=== PATIENT | male | born 1970 | race African-American/Black ===

== ENCOUNTER 2017-05-29 18:00 | Emergency (ER) | payer OTHER ==
[~2017-05-29] VITALS: Ht 180.3 cm; Wt 108.0 kg
[2017-05-29 18:52] LABS: BLOOD UREA NITROGEN 8 mg/dL (7-18)
[2017-05-29 21:37] VITALS: BP 134/76
== END 2017-05-29 21:39 | disposition home or self-care (01) ==
LOC: ED 20:50
DX: G47.00 Insomnia, unspecified (principal); R53.83 Other fatigue; F17.200 Nicotine dependence, unspecified, uncomplicated
CPT/HCPCS: 36415; 80048; 82040; 84439; 84443; 85025; 93005; 99285

== ENCOUNTER 2017-07-08 18:58 | Emergency (ER) | payer BC, OTHER ==
[~2017-07-08] VITALS: Ht 180.3 cm; Wt 102.5 kg
[2017-07-08 18:59] VITALS: BP 122/89
== END 2017-07-08 20:08 | disposition home or self-care (01) ==
LOC: ED 19:40
DX: E11.9 Type 2 diabetes mellitus without complications (principal)
CPT/HCPCS: 82962; 99281; 99282

== ENCOUNTER 2017-08-13 17:29 | Emergency (ER) | payer BC ==
[~2017-08-13] VITALS: Ht 180.3 cm; Wt 101.3 kg
[2017-08-13] MEDS ORDERED: SODIUM CHLORIDE 0.9% 1,000 ML IV ONE (17:54)
[2017-08-13] MEDS ORDERED: FAMOTIDINE 20 MG/2 ML IVP ONE (18:00)
[2017-08-13] MEDS ORDERED: ONDANSETRON 2MG/ML, 2ML IVPush ONE (18:00)
[2017-08-13] MEDS ORDERED: SODIUM CHLORIDE 0.9% 1,000ML IVBOLUS ONE (18:00)
[2017-08-13 18:10] LABS: HEMATOCRIT 48.2 % (39.2-51.8); HEMOGLOBIN 16.2 g/dL (13.7-18.0); WHITE BLOOD COUNT 10.2 x10^3/uL (3.4-10)
[2017-08-13 18:20] LABS: BLOOD UREA NITROGEN 18 mg/dL (7-18)
[2017-08-13 18:23] LABS: ASPARTATE AMINO TRANSFERASE 17 U/L (15-37)
[2017-08-13 19:37] VITALS: BP 120/76
== END 2017-08-13 19:40 | disposition home or self-care (01) ==
LOC: ED 18:18
DX: R10.33 Periumbilical pain (principal); R11.0 Nausea; E11.9 Type 2 diabetes mellitus without complications
CPT/HCPCS: 36415; 74020; 80053; 83690; 85025; 96361; 96374; 96375; 99285; J2405; J7030; S0028

== ENCOUNTER 2017-12-22 20:26 | Emergency (ER) | payer BC ==
[~2017-12-22] VITALS: Ht 180.3 cm; Wt 90.0 kg
[2017-12-22 20:28] VITALS: BP 145/87
[2017-12-22] MEDS ORDERED: KETOROLAC 30 MG/1 ML ONE (21:27)
[2017-12-22] MEDS ORDERED: KETOROLAC 60 MG/2 ML IM ONE (21:30)
[2017-12-22] MEDS ORDERED: L.E.T SOLUTION TP ONE (21:30)
== END 2017-12-22 22:43 | disposition home or self-care (01) ==
LOC: ED 21:45
DX: M25.511 Pain in right shoulder (principal); E11.9 Type 2 diabetes mellitus without complications
CPT/HCPCS: 73030; 96372; 99284; J1885

== ENCOUNTER 2017-12-26 16:50 | Emergency (ER) | payer BC ==
[~2017-12-26] VITALS: Ht 180.3 cm; Wt 86.5 kg
[2017-12-26 17:28] LABS: BASOPHILS # (AUTO) 0.05 x10^3/uL (0-0.1); BASOPHILS % (AUTO) 1 % (0-1); EOSINOPHILS % (AUTO) 1 % (1-7); LYMPHOCYTES # (AUTO) 1.87 x10^3/uL (1-3.4); LYMPHOCYTES % (AUTO) 18 % (22-44); MD NO; MEAN CORPUSCULAR HEMOGLOBIN 30.5 pg (27.5-34.5); MEAN CORPUSCULAR HGB CONC 33.3 g/dL (33.2-36.2); MEAN CORPUSCULAR VOLUME 91.8 fL (81-97); MEAN PLATELET VOLUME 8.8 fL (7.4-10.4); MONOCYTES # (AUTO) 0.99 x10^3/uL (0.2-0.8); MONOCYTES % (AUTO) 10 % (2-9); NEUTROPHILS # (AUTO) 7.15 x10^3/uL (1.8-6.8); NEUTROPHILS % (AUTO) 70 % (42-75); PLATELET COUNT 314 x10^3/uL (130-400); RED BLOOD COUNT 5.11 x10^6/uL (4.38-5.82); RED CELL DISTRIBUTION WIDTH 13.8 % (9.4-14.8)
[2017-12-26 17:40] LABS: ALANINE AMINOTRANSFERASE 17 U/L (12-78); ALBUMIN 3.1 g/dL (3.4-5.0); ANION GAP 7 mmol/L (5-15); CALCIUM 8.4 mg/dL (8.5-10.1); CHLORIDE 107 mmol/L (98-107); CREATININE 0.74 mg/dL (0.7-1.3)
[2017-12-26 18:03] LABS: ALKALINE PHOSPHATASE 110 U/L (45-117); BILIRUBIN,TOTAL 0.7 mg/dL (0.2-1.0); TOTAL PROTEIN 7.7 g/dL (6.4-8.2)
[2017-12-26] MEDS ORDERED: KETOROLAC 30 MG/1 ML IM ONE (20:30)
[2017-12-26] MEDS ORDERED: KETOROLAC 30 MG/1 ML ONE (21:17)
[2017-12-26 21:29] VITALS: BP 102/69
== END 2017-12-26 21:32 | disposition home or self-care (01) ==
LOC: ED 21:25
DX: M25.512 Pain in left shoulder (principal); M25.511 Pain in right shoulder; M25.522 Pain in left elbow; M25.521 Pain in right elbow; M25.531 Pain in right wrist; M25.562 Pain in left knee; M25.561 Pain in right knee; M25.572 Pain in left ankle and joints of left foot; M25.571 Pain in right ankle and joints of right foot; E11.9 Type 2 diabetes mellitus without complications; Z98.84 Bariatric surgery status
CPT/HCPCS: 36415; 80053; 83690; 84550; 85025; 96372; 99284; J1885

== ENCOUNTER 2018-01-23 18:13 | Emergency (ER) | payer BC ==
[~2018-01-23] VITALS: Ht 180.3 cm; Wt 88.0 kg
[2018-01-23] MEDS ORDERED: NAPR-685 PO (18:36)
[2018-01-23] MEDS ORDERED: SODIUM CHLORIDE 0.9% 1,000 ML IV ONE (18:49)
[2018-01-23] MEDS ORDERED: SODIUM CHLORIDE FLUSH 10ML SYR IVF ONE (19:00)
[2018-01-23] MEDS ORDERED: SODIUM CHLORIDE 0.9% 1,000ML IVBOLUS ONE (19:00)
[2018-01-23 19:13] LABS: BASOPHILS # (AUTO) 0.02 x10^3/uL (0-0.1); BASOPHILS % (AUTO) 0 % (0-1); EOSINOPHILS # (AUTO) 0.03 x10^3/uL (0-0.4); EOSINOPHILS % (AUTO) 0 % (1-7); LYMPHOCYTES # (AUTO) 1.26 x10^3/uL (1-3.4); LYMPHOCYTES % (AUTO) 11 % (22-44); MD NO; MEAN CORPUSCULAR HEMOGLOBIN 30.4 pg (27.5-34.5); MEAN CORPUSCULAR HGB CONC 33.2 g/dL (33.2-36.2); MEAN CORPUSCULAR VOLUME 91.7 fL (81-97); MEAN PLATELET VOLUME 9.2 fL (7.4-10.4); MONOCYTES # (AUTO) 0.63 x10^3/uL (0.2-0.8); MONOCYTES % (AUTO) 6 % (2-9); NEUTROPHILS # (AUTO) 9.08 x10^3/uL (1.8-6.8); NEUTROPHILS % (AUTO) 82 % (42-75); PLATELET COUNT 210 x10^3/uL (130-400); RED BLOOD COUNT 4.39 x10^6/uL (4.38-5.82); RED CELL DISTRIBUTION WIDTH 15.4 % (9.4-14.8)
[2018-01-23 19:22] LABS: ALBUMIN 3.1 g/dL (3.4-5.0); ANION GAP 4 mmol/L (5-15); CALCIUM 7.8 mg/dL (8.5-10.1); CHLORIDE 115 mmol/L (98-107); CREATININE 0.88 mg/dL (0.7-1.3)
[2018-01-23 20:10] VITALS: BP 138/72
== END 2018-01-23 20:16 | disposition home or self-care (01) ==
LOC: ED 19:25
DX: R55 Syncope and collapse (principal); E11.9 Type 2 diabetes mellitus without complications; F17.210 Nicotine dependence, cigarettes, uncomplicated
CPT/HCPCS: 36415; 80048; 82040; 85025; 93005; 99285; J7030

== ENCOUNTER 2018-02-01 11:31 | Emergency (ER) | payer BC ==
[~2018-02-01] VITALS: Ht 180.3 cm; Wt 96.3 kg
[~2018-02-01 11:31] MED LIST: NAPR-685 PO
[2018-02-01] MEDS ORDERED: SODIUM CHLORIDE FLUSH 10ML SYR IVF ONE (13:00)
[2018-02-01] MEDS ORDERED: IBUPROFEN 200 MG TABLET ONE (13:07)
[2018-02-01 13:18] LABS: BASOPHILS # (AUTO) 0.02 x10^3/uL (0-0.1); BASOPHILS % (AUTO) 0 % (0-1); EOSINOPHILS # (AUTO) 0.01 x10^3/uL (0-0.4); EOSINOPHILS % (AUTO) 0 % (1-7); LYMPHOCYTES # (AUTO) 0.52 x10^3/uL (1-3.4); LYMPHOCYTES % (AUTO) 6 % (22-44); MD NO; MEAN CORPUSCULAR HEMOGLOBIN 29.8 pg (27.5-34.5); MEAN CORPUSCULAR VOLUME 90.3 fL (81-97); MEAN PLATELET VOLUME 9.2 fL (7.4-10.4); MONOCYTES # (AUTO) 0.45 x10^3/uL (0.2-0.8); MONOCYTES % (AUTO) 5 % (2-9); NEUTROPHILS # (AUTO) 7.76 x10^3/uL (1.8-6.8); NEUTROPHILS % (AUTO) 89 % (42-75); PLATELET COUNT 174 x10^3/uL (130-400); RED BLOOD COUNT 4.79 x10^6/uL (4.38-5.82); RED CELL DISTRIBUTION WIDTH 15.8 % (9.4-14.8)
[2018-02-01 13:20] LABS: MICROSCOPIC AUTO
[2018-02-01 13:29] LABS: ALANINE AMINOTRANSFERASE 26 U/L (12-78); ALBUMIN 3.7 g/dL (3.4-5.0); ANION GAP 9 mmol/L (5-15); CALCIUM 8.3 mg/dL (8.5-10.1); CHLORIDE 104 mmol/L (98-107); CREATININE 0.97 mg/dL (0.7-1.3)
[2018-02-01] MEDS ORDERED: IBUPROFEN 200 MG TABLET PO ONE (13:30)
[2018-02-01 13:32] LABS: ALKALINE PHOSPHATASE 116 U/L (45-117); BILIRUBIN,TOTAL 0.6 mg/dL (0.2-1.0); TOTAL PROTEIN 7.3 g/dL (6.4-8.2)
[2018-02-01 14:04] LABS: CULTURE INDICATED? NO
[2018-02-01 14:32] VITALS: BP 132/92
== END 2018-02-01 14:35 | disposition home or self-care (01) ==
LOC: ED 13:46
DX: B34.9 Viral infection, unspecified (principal); E11.9 Type 2 diabetes mellitus without complications; Z98.84 Bariatric surgery status
CPT/HCPCS: 36415; 71045; 80053; 81001; 83605; 84145; 85025; 99285

== ENCOUNTER 2020-08-22 14:17 | Emergency (ER) | payer BC, MEDICAID ==
[~2020-08-22] VITALS: Ht 180.3 cm; Wt 114.0 kg
[2020-08-22] MEDS ORDERED: DIPHENHYDRAMINE 50 MG/ML, 1ML ONE (14:58)
[2020-08-22] MEDS ORDERED: MORPHINE SULFATE 4 MG/ML, 1ML ONE (14:59)
[2020-08-22] MEDS ORDERED: MORPHINE SULFATE 4 MG/ML, 1ML IVPush ONE (15:00)
[2020-08-22] MEDS ORDERED: DIPHENHYDRAMINE 50 MG/ML, 1ML IV ONE (15:00)
[2020-08-22 15:07] LABS: BASOPHILS % (AUTO) 0 % (0-1); EOSINOPHILS % (AUTO) 0 % (1-7); LYMPHOCYTES % (AUTO) 9 % (22-44); MEAN CORPUSCULAR HEMOGLOBIN 29.8 pg (27.5-34.5); MEAN CORPUSCULAR HGB CONC 32.9 g/dL (33.2-36.2); MEAN PLATELET VOLUME 9.1 fL (7.4-10.4); MONOCYTES % (AUTO) 8 % (2-9); NEUTROPHILS % (AUTO) 83 % (42-75); PLATELET COUNT 212 x10^3/uL (130-400); RED BLOOD COUNT 5.02 x10^6/uL (4.38-5.82); RED CELL DISTRIBUTION WIDTH 15.1 % (9.4-14.8)
[2020-08-22 15:20] LABS: ALANINE AMINOTRANSFERASE 43 U/L (12-78); ANION GAP 3 mmol/L (5-15); C-REACTIVE PROTEIN, QUANT 0.51 mg/dL (0.02-0.49); CALCIUM 8.4 mg/dL (8.5-10.1); CHLORIDE 107 mmol/L (98-107)
[2020-08-22 15:23] LABS: ALKALINE PHOSPHATASE 140 U/L (45-117); BILIRUBIN,TOTAL 0.5 mg/dL (0.2-1.0); TOTAL PROTEIN 7.5 g/dL (6.4-8.2)
[2020-08-22 15:28] LABS: MD SCAN
[2020-08-22] MEDS ORDERED: KETOROLAC 30 MG/1 ML ONE (15:52)
[2020-08-22] MEDS ORDERED: KETOROLAC 30 MG/1 ML IVPush ONE (16:00)
--- NOTE | 2020-08-22 16:03 | NUR ---
BREAK RN: PT TALKING ON CELL PHONE IN ROOM. NO ACUTE DISTRESS NOTED. VS STABLE. CALL LIGHT IN PLACE. WILL CONTINUE TO MONITOR WHILE PRIMARY RN IS ON BREAK.
[2020-08-22 16:09] VITALS: BP 155/74
== END 2020-08-22 16:17 | disposition home or self-care (01) ==
LOC: ED 16:01
DX: R51.9 Headache, unspecified (principal); B34.9 Viral infection, unspecified; E11.9 Type 2 diabetes mellitus without complications; F17.200 Nicotine dependence, unspecified, uncomplicated
CPT/HCPCS: 36415; 70450; 71045; 80053; 85025; 86140; 96374; 96375; 99285; J1200; J1885; J2270; 87635

== ENCOUNTER 2020-08-25 11:50 | Emergency (ER) | payer MEDICAID ==
[~2020-08-25] VITALS: Ht 180.3 cm; Wt 112.9 kg
[2020-08-25 11:57] VITALS: BP 105/71
--- NOTE | 2020-08-25 12:24 | NUR ---
PT C/O OCCASIONAL COUGH AND SOB. PT DENIES SOB AT THIS TIME. PT ALSO STATES HE HAS BEEN HAVING HEADACHES. PT TOOK A COVID TEST SUNDAY BUT THE SAMPLE WAS NOT ENOUGH. PT HERE TODAY TO HAVE ANOTHER SWAB DONE.
--- NOTE | 2020-08-25 13:26 | NUR ---
PT REC'VD DISCHARGE INSTRUCTIONS AND EDUCATION. PT HAD NO FURTHER QUESTIONS. PT AMBULATED TO DISCHARGE AREA, STEADY GAIT.
== END 2020-08-25 13:31 | disposition home or self-care (01) ==
LOC: ED 12:00
DX: U07.1 COVID-19 (principal); B34.9 Viral infection, unspecified; J06.9 Acute upper respiratory infection, unspecified; R05 Cough; R09.81 Nasal congestion; R94.31 Abnormal electrocardiogram [ECG] [EKG]; F17.210 Nicotine dependence, cigarettes, uncomplicated
CPT/HCPCS: 36415; 87635; 93005; 99284

== ENCOUNTER 2020-08-28 17:04 | Emergency (ER) | payer MEDICAID ==
[~2020-08-28] VITALS: Ht 180.3 cm; Wt 113.3 kg
[2020-08-28 17:42] LABS: BASOPHILS % (AUTO) 1 % (0-1); EOSINOPHILS % (AUTO) 1 % (1-7); LYMPHOCYTES % (AUTO) 29 % (22-44); MEAN CORPUSCULAR HEMOGLOBIN 29.2 pg (27.5-34.5); MEAN PLATELET VOLUME 9.1 fL (7.4-10.4); MONOCYTES % (AUTO) 8 % (2-9); NEUTROPHILS % (AUTO) 62 % (42-75); PLATELET COUNT 229 x10^3/uL (130-400); RED BLOOD COUNT 5.63 x10^6/uL (4.38-5.82); RED CELL DISTRIBUTION WIDTH 14.3 % (9.4-14.8)
[2020-08-28 17:43] LABS: MD NO
[2020-08-28 17:52] LABS: ALANINE AMINOTRANSFERASE 36 U/L (12-78); ALBUMIN 3.4 g/dL (3.4-5.0); ANION GAP 4 mmol/L (5-15); CALCIUM 8.3 mg/dL (8.5-10.1); CHLORIDE 114 mmol/L (98-107); CREATININE 0.92 mg/dL (0.7-1.3)
[2020-08-28 17:54] LABS: ALKALINE PHOSPHATASE 148 U/L (45-117); BILIRUBIN,TOTAL 0.2 mg/dL (0.2-1.0); TOTAL PROTEIN 7.4 g/dL (6.4-8.2)
[2020-08-28 20:18] VITALS: BP 132/78
== END 2020-08-28 20:21 | disposition home or self-care (01) ==
LOC: ED 17:34
DX: B34.9 Viral infection, unspecified (principal); M79.10 Myalgia, unspecified site; R07.9 Chest pain, unspecified; R94.31 Abnormal electrocardiogram [ECG] [EKG]; F17.210 Nicotine dependence, cigarettes, uncomplicated; E11.9 Type 2 diabetes mellitus without complications
CPT/HCPCS: 36415; 71045; 80053; 85025; 93005; 99285; 99406

== ENCOUNTER 2020-11-04 20:52 | Emergency (ER) | payer MEDICAID ==
[~2020-11-04] VITALS: Ht 180.3 cm; Wt 112.0 kg
[2020-11-04] MEDS ORDERED: MORPHINE SULFATE 4 MG/ML, 1ML ONE ×2 (21:20→22:49)
--- NOTE | 2020-11-04 21:20 | NUR ---
PT BIB VIA POV FOR LOWER ABD PAIN SINCE SUNDAY WORSENING IF CONSUMING FOOD OR LIQUIDS. PT DENIES FEVERS, REPORTS VOMITING X1 TODAY. TOOK LAXATIVES AT HOME AND NO IMPROVEMEN. PT RESTING IN [place] AT THIS TIME. WILL CONTINUE TO MONITOR.
[2020-11-04] MEDS ORDERED: ONDANSETRON 2MG/ML, 2ML ONE (21:21)
[2020-11-04] MEDS: MORPHINE SULFATE 4 MG/ML, 1ML IVPush PRN ×2 (21:26→22:50)
--- NOTE | 2020-11-04 21:26 | NUR ---
REPORT GIVEN TO MONTSE MUNOZ.
--- NOTE | 2020-11-04 21:29 | NUR ---
BEDSIDE REPORT RECEIVED FROM LISSETTE WILLARD
[2020-11-04] MEDS ORDERED: SODIUM CHLORIDE FLUSH 10ML SYR IVF ONE (21:30)
[2020-11-04] MEDS ORDERED: ONDANSETRON 2MG/ML, 2ML IVPush ONE (21:30)
--- NOTE | 2020-11-04 22:03 | NUR ---
PT SITTING UPRIGHT ON GURNEY, NAD, VSS. 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 PT DENIES ANY ADDITIONAL NEEDS AT THIS TIME. CALL LIGHT AND BELONGINGS WITHIN REACH.
[2020-11-04 22:07] LABS: BASOPHILS % (AUTO) 0 % (0-1); EOSINOPHILS % (AUTO) 1 % (1-7); LYMPHOCYTES % (AUTO) 19 % (22-44); MD NO; MEAN CORPUSCULAR HEMOGLOBIN 30.1 pg (27.5-34.5); MEAN CORPUSCULAR HGB CONC 33.3 g/dL (33.2-36.2); MEAN PLATELET VOLUME 9.3 fL (7.4-10.4); MONOCYTES % (AUTO) 7 % (2-9); NEUTROPHILS % (AUTO) 73 % (42-75); PLATELET COUNT 224 x10^3/uL (130-400); RED BLOOD COUNT 4.63 x10^6/uL (4.38-5.82); RED CELL DISTRIBUTION WIDTH 15.1 % (9.4-14.8)
--- NOTE | 2020-11-04 22:07 | NUR ---
PT UNABLE TO PROVIDE URINE SAMPLE AT THIS TIME. "I CANT PEE, I WENT JUST BEFORE I GOT HERE". PT PROVIDED URINAL.
[2020-11-04 22:17] LABS: ALANINE AMINOTRANSFERASE 29 U/L (12-78); ANION GAP 4 mmol/L (5-15); CHLORIDE 110 mmol/L (98-107); CREATININE 0.76 mg/dL (0.7-1.3)
[2020-11-04 22:19] LABS: ALKALINE PHOSPHATASE 96 U/L (45-117); BILIRUBIN,TOTAL 0.3 mg/dL (0.2-1.0); TOTAL PROTEIN 5.9 g/dL (6.4-8.2)
--- NOTE | 2020-11-04 22:28 | NUR ---
CT PENDING LAB/CREATINE.
--- NOTE | 2020-11-04 22:34 | NUR ---
PT TO IMAGING
[2020-11-04] MEDS ORDERED: OMNIPAQUE 350 MG/ML, 100ML BOTTLE ONE (22:42)
[2020-11-04 22:59] LABS: MICROSCOPIC NOT IND
[2020-11-04 23:10] VITALS: BP 146/80
--- NOTE | 2020-11-04 23:10 | NUR ---
PT SITTING UPRIGHT ON GURNEY, NAD, VSS. PT REPORTED INCREASED PAIN, MEDICATED PER EMAR. NO ADDITIONAL NEEDS AT THIS TIME. CALL LIGHT WITHIN REACH.
--- NOTE | 2020-11-04 23:30 | NUR ---
Patient given discharge instructions and they have confirmed that they understand the instructions. Patient ambulatory with steady gait.
== END 2020-11-04 23:41 | disposition home or self-care (01) ==
LOC: ED 22:19
DX: K59.00 Constipation, unspecified (principal); R10.84 Generalized abdominal pain; R11.2 Nausea with vomiting, unspecified; E11.9 Type 2 diabetes mellitus without complications; F17.210 Nicotine dependence, cigarettes, uncomplicated
CPT/HCPCS: 36415; 74177; 80053; 81003; 83690; 85025; 96374; 96375; 96376; 99285; 99406; J2270; J2405; Q9967

== ENCOUNTER 2020-11-19 08:58 | Inpatient (IN) | payer MEDICAID ==
[~2020-11-19] VITALS: Ht 180.3 cm; Wt 110.2 kg
--- NOTE | 2020-11-19 09:46 | NUR ---
Pt c/o ongoing lower abd pain and discomfort that comes and goes, hx of constipation, states this pain is the same a last time, unable to go to work today. Last BM yesterday, reports drinking prune juice to help but had emesis x 1 right after. Denies pain with urination, bowle sounds present, vitals stable.
[2020-11-19] MEDS ORDERED: KETOROLAC 30 MG/1 ML ONE (10:00)
[2020-11-19] MEDS ORDERED: KETOROLAC 30 MG/1 ML IVPush ONE (10:00)
[2020-11-19] MEDS ORDERED: SODIUM CHLORIDE FLUSH 10ML SYR IVF ONE (10:00)
--- NOTE | 2020-11-19 10:02 | NUR ---
PIV placed, medicated for pain per MD orders, imaging complete, waiting for results.
[2020-11-19 10:19] LABS: ALBUMIN 3.3 g/dL (3.4-5.0); ANION GAP 7 mmol/L (5-15); CALCIUM 7.8 mg/dL (8.5-10.1); CHLORIDE 110 mmol/L (98-107)
[2020-11-19 10:20] LABS: BASOPHILS % (AUTO) 0 % (0-1); EOSINOPHILS % (AUTO) 0 % (1-7); LYMPHOCYTES % (AUTO) 3 % (22-44); MEAN CORPUSCULAR HEMOGLOBIN 30.2 pg (27.5-34.5); MEAN CORPUSCULAR HGB CONC 33.4 g/dL (33.2-36.2); MEAN PLATELET VOLUME 9.1 fL (7.4-10.4); MONOCYTES % (AUTO) 3 % (2-9); NEUTROPHILS % (AUTO) 93 % (42-75); PLATELET COUNT 206 x10^3/uL (130-400); RED BLOOD COUNT 5.05 x10^6/uL (4.38-5.82); RED CELL DISTRIBUTION WIDTH 15.1 % (9.4-14.8)
[2020-11-19 10:23] LABS: ALANINE AMINOTRANSFERASE 33 U/L (12-78); ALKALINE PHOSPHATASE 92 U/L (45-117); BILIRUBIN,TOTAL 0.7 mg/dL (0.2-1.0); CREATININE 0.78 mg/dL (0.7-1.3)
[2020-11-19 10:28] LABS: MD NO
[2020-11-19] MEDS ORDERED: ONDANSETRON 2MG/ML, 2ML IVPush PRN (12:00)
[2020-11-19] MEDS ORDERED: METOCLOPRAMIDE 5 MG/ML, 2ML ONE (12:06)
[2020-11-19] MEDS ORDERED: MORPHINE SULFATE 4 MG/ML, 1ML ONE (12:06)
[2020-11-19] MEDS: MORPHINE SULFATE 4 MG/ML, 1ML IVPush PRN ×2 (12:12→17:43)
[2020-11-19] MEDS: METOCLOPRAMIDE 5 MG/ML, 2ML IVPush SCH ×3 (12:13→23:59)
--- NOTE | 2020-11-19 12:15 | NUR ---
pt medicated for pain, ivf infusing, vitals stable, denies n/v.
[2020-11-19] MEDS ORDERED: SODIUM CHLORIDE 0.9% 1,000 ML IV ONE (12:30)
[2020-11-19] MEDS ORDERED: KETOROLAC 30 MG/1 ML IVPush PRN (12:30)
[2020-11-19] MEDS ORDERED: SODIUM CHLORIDE FLUSH 10ML SYR IVF PRN (12:30)
--- NOTE | 2020-11-19 13:02 | NUR ---
Report called to L[facility] WILL[facility], stable for transport.
[2020-11-19 13:25] VITALS: BP 124/73
[2020-11-19] MEDS: NICOTINE 14MG/24 HR PATCH.TD24 TD SCH (13:36)
[2020-11-19 18:29] VITALS: BP 134/73
[2020-11-20 00:05] VITALS: BP 119/74
[2020-11-20] MEDS: METOCLOPRAMIDE 5 MG/ML, 2ML IVPush SCH ×2 (05:45→12:54)
[2020-11-20] MEDS: MORPHINE SULFATE 4 MG/ML, 1ML IVPush PRN (05:53)
[2020-11-20 06:06] LABS: BASOPHILS % (AUTO) 1 % (0-1); EOSINOPHILS % (AUTO) 1 % (1-7); LYMPHOCYTES % (AUTO) 18 % (22-44); MEAN CORPUSCULAR HEMOGLOBIN 30.3 pg (27.5-34.5); MEAN CORPUSCULAR HGB CONC 33.5 g/dL (33.2-36.2); MEAN PLATELET VOLUME 8.7 fL (7.4-10.4); MONOCYTES % (AUTO) 8 % (2-9); NEUTROPHILS % (AUTO) 73 % (42-75); PLATELET COUNT 176 x10^3/uL (130-400); RED BLOOD COUNT 4.75 x10^6/uL (4.38-5.82); RED CELL DISTRIBUTION WIDTH 14.9 % (9.4-14.8)
[2020-11-20 06:18] LABS: ANION GAP 8 mmol/L (5-15); CALCIUM 7.6 mg/dL (8.5-10.1); CHLORIDE 110 mmol/L (98-107); CREATININE 0.73 mg/dL (0.7-1.3)
[2020-11-20 06:20] LABS: MD NO
[2020-11-20 07:40] VITALS: BP 110/68
[2020-11-20] MEDS ORDERED: CYANOCOBALAMIN 1,000 MCG/ML, 1ML IM ONE (12:00)
[2020-11-20] MEDS: NICOTINE 14MG/24 HR PATCH.TD24 TD SCH (12:55)
[2020-11-20 13:10] VITALS: BP 128/78
[2020-11-20] MEDS ORDERED: OXYcodone IR 5MG TABLET PO PRN (13:30)
[2020-11-20] MEDS ORDERED: METO10TA82 PO (13:48)
== END 2020-11-20 16:00 | disposition home or self-care (01) | DRG 390 ==
LOC: ED 09:34 → EDIP 12:09 → 3N 13:17 → DCLOUNGE 11-20 15:44
PROVIDERS: ADMIT Hospitalist; ATTEND Hospitalist
DX: K56.51 Intestinal adhesions [bands], with partial obstruction (principal); E11.9 Type 2 diabetes mellitus without complications; F17.210 Nicotine dependence, cigarettes, uncomplicated; I10 Essential (primary) hypertension; K21.9 Gastro-esophageal reflux disease without esophagitis; K44.9 Diaphragmatic hernia without obstruction or gangrene; G47.33 Obstructive sleep apnea (adult) (pediatric); Z86.16 Personal history of COVID-19; Z98.84 Bariatric surgery status
CPT/HCPCS: 36415; 74021; 74176; 74240; 80048; 80053; 82607; 83690; 85025; 99285; G0378; J1885; J2270; J2765; J3420; J7030